=== PATIENT | female | born 1965 | race Caucasian/White ===

== ENCOUNTER → 2017-03-30 | Outpatient (CLI) | payer BC ==
[~2017-03-30] MED LIST: CARV12.52 PO; CETI10CA19 PO; CHOL100018 PO; CYCL-208 PO; ESTR1TAB77 PO; FAMO20TA7; FISH1CAP59 PO; HYDR-3841 PO; IOHEXOL 300 MG/ML 100ml INJECTION ONE; NORMAL SALINE 100 ML ONE; OMEP-122 PO; SALINE FLUSH 10ml SYRINGE ONE; TRIA1TAB3 PO
--- NOTE | 2017-03-31 08:53 | DI ---
Indication: ITS.REASON: R10.[address] ABD/PELVIS W/CONTRAST ONLY: Comparison: 05/14/2014 Technique: Patient scanned from above the diaphragm to below the pubic symphysis after oral and approximately 90 cc Omnipaque 300 intravenous contrast is utilized with dose reduction imaging technology and reformatted sagittal and coronal images. Findings: Heart size and lung bases are unremarkable. Liver, gallbladder, biliary tree and common duct are unremarkable. Pancreas is unremarkable. Spleen is unremarkable. Adrenal glands are both normal. Both kidneys excrete the contrast in a normal pattern showing no obstruction, mass, cyst or abnormal calcifications. Retroperitoneum is unremarkable. Visualized bowel shows no suggestion of obstruction or acute inflammatory change. Bladder is unremarkable. No additional acute findings noted in the pelvis. No free air or free fluid seen. Reformatted imaging shows no acute bony findings. Impression: Unremarkable CT abdomen and pelvis. .
== END ==
LOC: IMA 13:56
PROVIDERS: ATTEND Family Medicine
DX: R10.31 Right lower quadrant pain (principal)
CPT/HCPCS: 74177; J7050; Q9967